=== PATIENT | female | born 1990 | race Two or more races ===

== ENCOUNTER 2022-02-25 01:10 | Inpatient (IN) | payer OTHER ==
[~2022-02-25] VITALS: Ht 157.5 cm; Wt 64.0 kg
[2022-02-25] MEDS ORDERED: SERT-440 PO (02:15)
[2022-02-25] MEDS ORDERED: SPIR50TA27 PO (02:15)
[2022-02-25 02:35] LABS: BASOPHILS % (AUTO) 0.5 % (0.0-2.0); EOSINOPHILS % (AUTO) 0.2 % (1.0-6.0); HEMATOCRIT 36.8 % (36-46); HEMOGLOBIN 12.5 g/dL (12.0-16.0); LYMPHOCYTES # (AUTO) 1.8 K/uL (1.0-4.8); MEAN CORPUSCULAR HEMOGLOBIN 29.5 pg (26.0-34.0); MEAN CORPUSCULAR HGB CONC 33.8 G/dL (31.0-37.0); MEAN CORPUSCULAR VOLUME 87 fL (80-100); NEUTROPHILS # (AUTO) 6.8 K/uL (1.8-7.7); NEUTROPHILS % (AUTO) 70.3 % (40.0-70.0); PLATELET COUNT (AUTO) 260 K/uL (150-450); RED BLOOD CELL COUNT(AUTO) 4.22 MIL/uL (4.00-5.20); RED CELL DISTRIBUTION WIDTH 13.1 % (11.5-14.5)
[2022-02-25 02:43] LABS: ANION GAP 2 mmol/L (8-16); CALCIUM, TOTAL 8.9 mg/dL (8.8-10.5); CARBON DIOXIDE 29 mmol/L (22-29); CHLORIDE 104 mmol/L (98-107); CREATININE 0.69 mg/dL (0.60-1.30); GLUCOSE,RANDOM 117 mg/dL (70-110); POTASSIUM 4.1 mmol/L (3.5-5.1); SODIUM SERUM 135 mmol/L (136-145); UREA NITROGEN, BLOOD 18 mg/dL (7-18)
[2022-02-25 02:47] LABS: GLOMERULAR FILTR. RATE CALC > 60 mL/min (>60)
[2022-02-25 02:49] LABS: ALANINE AMINOTRANSFERASE 23 U/L (12-78); ALBUMIN 3.5 g/dL (3.4-5.0); ALKALINE PHOSPHATASE 57 U/L (46-116); ASPARTATE AMINOTRANSFERASE 16 U/L (15-37); BILIRUBIN,TOTAL 0.1 mg/dL (0.1-1.0); TOTAL PROTEIN, SERUM 7.2 g/dL (6.4-8.2)
[2022-02-25] MEDS ORDERED: LORazepam 2 MG TABLET PO PRN (03:00)
[2022-02-25] MEDS ORDERED: ZOLPIDEM TARTRATE 10 MG TABLET PO PRN (03:00)
[2022-02-25] MEDS ORDERED: HALOPERIDOL 5 MG TABLET PO PRN (03:00)
[2022-02-25 04:48] LABS: COVID AG,FIA SOURCE NASOPHARYNGEAL
[2022-02-25 13:29] VITALS: BP 121/74
[2022-02-25] MEDS ORDERED: INFLUENZA VIRUS VACCINE QVS 2022-23 (6MO+)/PF 60 MCG/0.5 ML SYRINGE IM. ONE (14:00)
[2022-02-25 20:00] VITALS: BP 124/78
[2022-02-26 08:15] VITALS: BP 109/69
[2022-02-26] MEDS ORDERED: NICOTINE 14 MG/24 HOUR PATCH TD PRN (14:15)
[2022-02-26] MEDS ORDERED: ACETAMINOPHEN 325 MG TABLET PO PRN (14:15)
[2022-02-26] MEDS ORDERED: MAGNESIUM HYDROXIDE SUSPENSION 30 ML UDCUP PO PRN (14:15)
[2022-02-26] MEDS ORDERED: GuaiFENesin/D-METHORPHAN [SUGAR-FREE] 200-20MG/10 ML SYRUP UDCUP PO PRN (14:15)
[2022-02-26] MEDS ORDERED: IBUPROFEN 400 MG TABLET PO PRN (14:15)
[2022-02-26] MEDS ORDERED: ALBUTEROL SULFATE HFA 90 MCG/PUFF 8 GM INHALER IH PRN (14:15)
[2022-02-26] MEDS ORDERED: MAG HYDROX/AL HYDROX/SIMETH ES 30 ML SUSPENSION UDCUP PO PRN (14:15)
[2022-02-26] MEDS ORDERED: LOPERAMIDE HCL 2 MG CAPSULE PO PRN (14:15)
[2022-02-26] MEDS ORDERED: PETROLATUM,WHITE 28 GM JELLY TP PRN (14:15)
[2022-02-26] MEDS ORDERED: ONDANSETRON HCL 4 MG TABLET PO PRN (14:15)
[2022-02-26] MEDS ORDERED: CloNIDine HCL 0.1 MG TABLET PO PRN (14:15)
[2022-02-26] MEDS ORDERED: DOCUSATE SODIUM 100 MG CAPSULE PO PRN (14:15)
[2022-02-26 20:38] VITALS: BP 108/75
[2022-02-26] MEDS ORDERED: SERTRALINE HCL 100 MG TABLET PO SCH (21:00)
[2022-02-27 08:36] VITALS: BP 104/60
[2022-02-27] MEDS ORDERED: SPIRONOLACTONE 50 MG TABLET PO SCH (09:00)
[2022-02-27] MEDS ORDERED: SPIR50TA PO (12:07)
[2022-02-27] MEDS ORDERED: SERT-440 PO (12:07)
== END 2022-02-27 15:34 | disposition home or self-care (01) | DRG 885 ==
LOC: EMS 01:11 → B2S 09:00
PROVIDERS: ADMIT Psychiatry & Neurology Psychiatry; ATTEND Psychiatry & Neurology Psychiatry
DX: F33.2 Major depressive disorder, recurrent severe without psychotic features (principal); Z20.822 Contact with and (suspected) exposure to COVID-19; Z79.899 Other long term (current) drug therapy
CPT/HCPCS: 80053; 85025; 99285; G0480